=== PATIENT | male | born 1960 | race Caucasian/White ===

== ENCOUNTER 2021-08-05 10:08 | Outpatient (RCR) | payer OTHER | END 2021-11-03 | disposition home or self-care (01) | LOC: ONC 10:08 | PROVIDERS: ATTEND Radiology Radiation Oncology | DX: C61 Malignant neoplasm of prostate (principal); I10 Essential (primary) hypertension | CPT/HCPCS: 76873; G0463; 99204 ==

== ENCOUNTER 2021-12-18 05:32 | Outpatient (CLI) | payer OTHER ==
[~2021-12-18] VITALS: Ht 175 cm; Wt 83.0 kg
[2021-12-23] MEDS ORDERED: VITAMIN D3 (14:45)
[2021-12-23] MEDS ORDERED: ZINC (14:45)
[2021-12-23] MEDS ORDERED: LISI10TA25 PO (14:45)
[2021-12-23] MEDS ORDERED: VITAMIN C (14:45)
[2021-12-23] MEDS ORDERED: NAPR-1070 PO (14:45)
[2021-12-25] MEDS ORDERED: CIPR-226 PO (09:41)
[2021-12-25] MEDS ORDERED: ACET1TAB43 PO (09:41)
== END 2021-12-24 11:46 | disposition home or self-care (01) ==
LOC: PREOP 05:32
PROVIDERS: ATTEND Radiology Radiation Oncology
DX: Z01.818 Encounter for other preprocedural examination (principal)

== ENCOUNTER 2021-12-25 08:54 | Day surgery (SDC) | payer OTHER ==
[~2021-12-25] VITALS: Ht 175 cm; Wt 83.0 kg
[2021-12-25] VITALS (9 sets, daily range): BP systolic 117–150; BP diastolic 75–103
[~2021-12-25 08:54] MED LIST: LISI10TA25 PO; NAPR-1070 PO; VITAMIN C; VITAMIN D3; ZINC
--- NOTE | 2021-12-25 09:39 | Progress Note-Pre Operative ---
Pre-Operative Progress Note H&P Reviewed The H&P was reviewed, patient examined and no changes noted. Date Seen by Provider: Dec 25, 2021 Time Seen by Provider: 09:38 Date H&P Reviewed: Dec 25, 2021 Time H&P Reviewed: 09:38 Pre-Operative Diagnosis: Prostate cancer cT1c, PSA 5.4, [place] 7 (3+4) SANTY RETANA MD Dec 25, 2021 09:39
[2021-12-25] MEDS ORDERED: ACET1TAB43 PO (09:41)
[2021-12-25] MEDS ORDERED: CIPR-226 PO (09:41)
--- NOTE | 2021-12-25 09:45 | Discharge Inst-Simple/Standard ---
Discharge Inst-Standard Reconcile Patient Problems Problems Reviewed?: Yes Discharge Medications New, Converted or Re-Newed RX: RX Given to Pt/Family Patient Instructions/Follow Up Plan of Care/Instructions/FU: 1)one month post implant scan at [facility] cancer center 01/20/22 at 9:30 a.m. 2)one month follow up with Dr. Paez 01/30/22 at 1:45 p.m. Activity as Tolerated: Yes Discharge Diet: No Restrictions Other Inst to Patient Please instruct patient on pimentel catheter care and self removal for Thursday12/30/21 in the morning. If unable to void notify Dr. Paez's office. SANTY RETANA MD Dec 25, 2021 09:45
[2021-12-25] MEDS: LACTATED RINGERS 1,000 ML IV PRN ×2 (10:00→12:12)
[2021-12-25] MEDS ORDERED: ONDANSETRON 4 MG/2 ML (SDV) Z0FRAN ONE (10:32)
[2021-12-25] MEDS ORDERED: fentaNYL INJ 100 MCG/2 ML AMP ONE (10:32)
[2021-12-25] MEDS ORDERED: proPOfol 200 MG/20 ML (DIPRIVAN) VIAL IV ONE (10:32)
[2021-12-25] MEDS ORDERED: LIDOCAINE PF 2% 5 ML (XYLOCAINE) VIAL ONE (10:32)
[2021-12-25] MEDS ORDERED: MIDAZOLAM 2 MG/2 ML (VERSED) VIAL ONE ×2 (10:33→10:35)
[2021-12-25] MEDS ORDERED: BACITRACIN OINTMENT 28 GM TUBE ONE (11:34)
[2021-12-25] MEDS ORDERED: SEVOFLURANE (ULTANE) 15 ML INHAL SOLN ONE (11:55)
--- NOTE | 2021-12-25 12:18 | Progress Note-Post Operative ---
Post-Operative Progess Note Surgeon (s)/Boxing Instructor (s) Surgeon SANTY RETANA MD Boxing Instructor: Vaibhav HENRIQUEZ MD Pre-Operative Diagnosis Prostate cancer cT1c, PSA 5.4, [place] 7 (3+4) Post-Operative Diagnosis Same as preop Procedure & Operative Findings Date of Procedure 12/25/21 Procedure Performed/Findings (1) 100% Cesium 131 permanent prostate seed implant (2) Injection of biodegradable hydrogel prostate-rectal spacer utilizing the SpaceOAR system (3) Cystogram Prostate volume 40 cc Anesthesia Type General Estimated Blood Loss Estimated blood loss (mL): Minimal Specimens/Packing Specimens Removed None Packing: N/A SANTY RETANA MD Dec 25, 2021 12:18
--- NOTE | 2021-12-25 12:42 | Diagnostic Imaging Report ---
INDICATION: Fluoroscopy during brachytherapy. Fluoroscopy was provided during prostate brachytherapy. 19 seconds of fluoroscopic time was utilized. A single image was obtained demonstrating multiple radiation seed implants within the prostate gland. IMPRESSION: Fluoroscopy for prostate brachytherapy. Dictated by: Dictated on workstation # [id number]
--- NOTE | 2021-12-25 13:41 | Anesthesia-General Post-Op ---
General Patient Condition Mental Status/LOC: Same as Preop Cardiovascular: Satisfactory Nausea/Vomiting: Absent Respiratory: Satisfactory Pain: Controlled Complications: Absent Post Op Complications Complications None Follow Up Care/Instructions Patient Instructions None needed. Anesthesia/Patient Condition Patient Condition Patient is doing well, no complaints, stable vital signs, no apparent adverse anesthesia problems. No complications reported per nursing. TRINA RIVERO CRNA Dec 25, 2021 13:41
== END 2021-12-25 14:10 | disposition home or self-care (01) ==
LOC: SDC 08:54
PROVIDERS: ATTEND Radiology Radiation Oncology
DX: C61 Malignant neoplasm of prostate (principal); I10 Essential (primary) hypertension; M54.9 Dorsalgia, unspecified; Z79.899 Other long term (current) drug therapy; G89.29 Other chronic pain; Z86.16 Personal history of COVID-19; Z80.42 Family history of malignant neoplasm of prostate; Z83.3 Family history of diabetes mellitus
CPT/HCPCS: 55874; 55876; 76000; 76965; 77290; 77318; 77332; 77370; 77470; 77778; 87081; C1715; C1889; C2643

== ENCOUNTER 2022-01-20 09:29 | Outpatient (RCR) | payer OTHER ==
[~2022-01-20 09:29] MED LIST changes: +ACET1TAB43 PO; +CIPR-226 PO
== END 2022-02-13 | disposition home or self-care (01) ==
LOC: ONC 09:29
PROVIDERS: ATTEND Radiology Radiation Oncology
DX: Z51.0 Encounter for antineoplastic radiation therapy (principal); I10 Essential (primary) hypertension; Z80.42 Family history of malignant neoplasm of prostate
CPT/HCPCS: 77290

== ENCOUNTER 2022-02-07 11:45 | Outpatient (RCR) | payer OTHER | END 2022-02-13 | disposition home or self-care (01) | LOC: ONC 11:45 | PROVIDERS: ATTEND Radiology Radiation Oncology | DX: C61 Malignant neoplasm of prostate (principal); I10 Essential (primary) hypertension; Z80.42 Family history of malignant neoplasm of prostate; Z86.16 Personal history of COVID-19 | CPT/HCPCS: 77295 ==